=== PATIENT | female | born 1970 | race Hispanic/Latino ===

== ENCOUNTER → 2019-08-11 | Outpatient (CLI) | payer BC | END | disposition home or self-care (01) | LOC: RAH 15:14 | PROVIDERS: ATTEND Internal Medicine | DX: K59.00 Constipation, unspecified (principal); K44.9 Diaphragmatic hernia without obstruction or gangrene | CPT/HCPCS: 74176 ==

== ENCOUNTER → 2021-11-30 | Outpatient (CLI) | payer BC | END | disposition home or self-care (01) | LOC: RAH 16:53 | PROVIDERS: ATTEND Internal Medicine | DX: R05.9 Cough, unspecified (principal) | CPT/HCPCS: 71046 ==

== ENCOUNTER → 2022-09-01 | Outpatient (CLI) | payer BC | END | disposition home or self-care (01) | LOC: RAH 07:59 | PROVIDERS: ATTEND Obstetrics & Gynecology | DX: N88.8 Other specified noninflammatory disorders of cervix uteri (principal); D25.9 Leiomyoma of uterus, unspecified | CPT/HCPCS: 76830; 76856 ==

== ENCOUNTER → 2023-09-17 | Outpatient (CLI) | payer BC | END | disposition home or self-care (01) | LOC: RAH 10:17 | PROVIDERS: ATTEND Internal Medicine | DX: D25.9 Leiomyoma of uterus, unspecified (principal); N93.8 Other specified abnormal uterine and vaginal bleeding; H81.10 Benign paroxysmal vertigo, unspecified ear; R55 Syncope and collapse; R54 Age-related physical debility; J01.90 Acute sinusitis, unspecified; R09.89 Other specified symptoms and signs involving the circulatory and respiratory systems | CPT/HCPCS: 70450; 76830; 76856 ==

== ENCOUNTER → 2025-05-15 | Outpatient (CLI) | payer BC ==
--- NOTE | 2025-05-16 02:45 | HMCIMG ---
EXAM: CR Chest, 2 views CLINICAL HISTORY: Cough. COMPARISON: Chest radiograph dated 11/30/2021. FINDINGS: The lungs show no infiltrates or other acute findings. No pleural effusion or pneumothorax. The cardiomediastinal silhouette is within normal limits. No acute osseous abnormality. IMPRESSION: No acute cardiopulmonary process is evident. No interval changes. /[place]
== END | disposition home or self-care (01) ==
LOC: RAH 16:12
PROVIDERS: ATTEND Internal Medicine
DX: R05.9 Cough, unspecified (principal)
CPT/HCPCS: 71046

== ENCOUNTER → 2025-08-31 | Outpatient (CLI) | payer BC ==
--- NOTE | 2025-08-31 21:07 | HMCIMG ---
EXAM: MR Cervical Spine Without IV Contrast CLINICAL HISTORY: M41.9 ??? Scoliosis, unspecified TECHNIQUE: Magnetic resonance images of the cervical spine obtained in multiple planes without intravenous contrast. Series acquired: LOCALIZER, SAG T2 FRFSE, SAG T1 FSE, SAG STIR, AX T2 FRFSE CONTRAST: None COMPARISON: None provided FINDINGS: VERTEBRAE: Vertebral body heights are maintained. No acute compression deformity or marrow infiltrative lesion identified. Marginal anterior and posterior osteophytes noted. ALIGNMENT: Loss of normal cervical lordosis noted, likely secondary to degenerative spasm. No listhesis. SPINAL CORD: Normal in caliber and signal intensity. Mild anterior indentation at the levels of C4???C5, C5???C6, and C6???C7 due to disc osteophyte complexes. No intrinsic cord signal abnormality. C2???C3: Uncovertebral and facet joint degeneration (left > right). No disc bulge or herniation. Mild left neural foraminal narrowing. C3???C4: Disc osteophyte complex indenting the thecal sac. Uncovertebral and facet joint hypertrophy with mild left neural foraminal stenosis. C4???C5: Reduced disc height with anterior and posterior marginal osteophytes. Disc osteophyte complex causes mild thecal sac indentation and grade I???II spinal canal stenosis. Uncovertebral and facet hypertrophy, left greater than right. C5???C6: Disc space narrowing and posterior osteophyte-disc complex causing moderate thecal sac compression with grade II central canal stenosis and mild cord indentation. Mild bilateral foraminal stenosis. C6???C7: Reduced disc height with posterior osteophyte-disc complex causing mild thecal sac compression and mild canal stenosis. Facet arthropathy noted bilaterally. C7???T1: Disc height preserved. No canal or foraminal stenosis. PARASPINAL SOFT TISSUES: No abnormal prevertebral or paraspinal soft tissue signal. IMPRESSION: 1. No acute cervical spine findings. 2. Multilevel degenerative changes, most pronounced at C5-C6 with moderate thecal sac compression, grade II central canal stenosis, and mild cord indentation. 3. Grade I-II spinal canal stenosis at C4-C5 and mild canal stenosis at C6-C7. /[place]
== END | disposition home or self-care (01) ==
LOC: RAH 15:25
PROVIDERS: ATTEND Internal Medicine
DX: M47.22 Other spondylosis with radiculopathy, cervical region (principal); M48.02 Spinal stenosis, cervical region; M25.78 Osteophyte, vertebrae; M40.40 Postural lordosis, site unspecified; M50.123 Cervical disc disorder at C6-C7 level with radiculopathy; M50.122 Cervical disc disorder at C5-C6 level with radiculopathy; M50.121 Cervical disc disorder at C4-C5 level with radiculopathy; G95.9 Disease of spinal cord, unspecified
CPT/HCPCS: 72141